=== PATIENT | female | born 1990 | race Two or more races ===

== ENCOUNTER → 2016-10-30 | Outpatient (REF) | payer OTHER | LOC: M SFHCLERA 10:00 | PROVIDERS: ATTEND Nurse Practitioner Family | DX: N39.0 Urinary tract infection, site not specified (principal) ==

== ENCOUNTER → 2017-02-08 | Outpatient (CLI) | payer OTHER | LOC: M LAB 11:13 | PROVIDERS: ATTEND Student in an Organized Health Care Education/Training Program | DX: O03.9 Complete or unspecified spontaneous abortion without complication (principal) | CPT/HCPCS: 86850; 86901; J2790 ==